=== PATIENT | female | born 1995 | race Two or more races ===

== ENCOUNTER 2022-09-13 12:59 | Emergency (ER) | payer OTHER ==
[2022-09-13 13:18] VITALS: BP 95/65; PULSE 75; RESP 18; TEMP 98.2; BMI 25.0
[2022-09-13] MEDS ORDERED: ONDANSETRON *ODT* 4 MG TABLET SL ONE (15:41)
[2022-09-13] MEDS ORDERED: LACTATED RINGERS SOLUTION 1000 ML INFUS.BAG IV ONE (15:45)
[2022-09-13] MEDS ORDERED: ONDANSETRON *ODT* 4 MG TABLET ONE (16:27)
[2022-09-13 17:09] LABS: BASO % 0.1 % (0-2.0); EOS % 0.4 % (0-4.5); HEMATOCRIT 40.9 % (32.4-45.2); LYMPH % 1.9 % (8-40); MCH 28.7 pg (25.7-33.7); MCHC 34.1 g/dl (32.0-36.0); MEAN CELL VOLUME 84.2 fl (80-96); MEAN PLT VOLUME 8.5 fl (7.5-11.1); MONO % 3.9 % (3.8-10.2); NEUT % 93.7 % (42.8-82.8); PLATELET COUNT 241 10^3/uL (134-434); RBC 4.86 M/mm3 (3.60-5.2); RDW 12.3 % (11.6-15.6); WHITE BLOOD COUNT 9.3 K/mm3 (4.0-10.0)
[2022-09-13 17:31] LABS: CALCIUM 8.7 mg/dL (8.5-10.1)
[2022-09-13 17:32] LABS: ALBUMIN 4.1 g/dl (3.4-5.0); BLOOD UREA NITROGEN 14.8 mg/dL (7-18)
[2022-09-13 17:36] LABS: CREATININE 0.7 mg/dL (0.55-1.3)
[2022-09-13 17:37] LABS: BILIRUBIN,TOTAL 1.1 mg/dL (0.2-1); TOT PROT 7.5 g/dl (6.4-8.2)
[2022-09-13 17:51] LABS: ANISOCYTOSIS 1+; MACROCYTOSIS 0
== END 2022-09-13 18:45 | disposition home or self-care (01) ==
LOC: JER 12:59
DX: R51.9 Headache, unspecified (principal); R19.7 Diarrhea, unspecified; R42 Dizziness and giddiness
CPT/HCPCS: 0241U-QW; 36415; 80053; 85025; 99283-25; Q0162